=== PATIENT | male | born 1970 | race Caucasian/White ===

== ENCOUNTER 2022-10-07 13:20 | Inpatient (IN) ==
[2022-10-07 14:48] LABS: Basophils # (auto) 0.08 K/uL (0-0.2); Basophils % (auto) 0.7 %; Eosinophils # (auto) 0.63 K/uL (0-0.50); Eosinophils % (auto) 5.4 %; Hematocrit (blood only) 48.2 % (42.0-52.0); Hemoglobin 17.2 g/dl (14.0-18.0); Immature Granulocytes # (auto) 0.09 K/uL (0.01-0.20); Immature Granulocytes % (auto) 0.8 %; Lymphocytes # (auto) 1.97 K/uL (1.2-3.4); Mean Corpuscular Hemoglobin 30.3 pg (25.0-34.0); Mean Corpuscular Hgb Conc 35.7 g/dL (32.0-36.0); Mean Platelet Volume 8.4 fL (9.4-12.4); Monocytes # (auto) 0.99 K/uL (0.11-0.59); Monocytes % (auto) 8.6 %; Neutrophils # (auto) 7.81 K/uL (1.40-6.50); Neutrophils % (auto) 67.5 %; Platelet Count 204 K/uL (130-400); RDW Coefficient of Variation 13.1 % (11.5-14.5); Red Blood Count 5.67 M/uL (4.70-6.10); White Blood Count 11.57 K/ul (4.8-10.8)
[2022-10-07 15:12] LABS: Albumin Level 4.4 gm/dl (3.4-5.0); Anion Gap 6 (3-11); Bilirubin,Total 0.4 mg/dl (0.2-1.0); Calcium 9.6 mg/dl (8.6-10.3); Carbon Dioxide 27 mmol/L (21-32); Chloride 99 mmol/L (98-107); Potassium 4.4 mmol/L (3.5-5.1); Sodium 132 mmol/L (136-145)
[2022-10-07 15:30] LABS: INR 0.9 (0.9-1.1); Partial Thromboplastin Ratio 0.8; Partial Thromboplastin Time 23.4 Seconds (21.0-31.0); Prothrombin Time 9.8 Seconds (9.0-12.0)
[2022-10-07 15:45] LABS: Alanine Aminotransferase 23 U/L (7-52); Albumin Globulin Ratio 1.6 (0.9-2); Alkaline Phosphatase 122 U/L (34-104); Aspartate Aminotransferase 12 U/L (13-39); BUN Creatinine Ratio 18.5 (10-20); Blood Urea Nitrogen 17 mg/dl (6-23); Est GFR (Non-African American) 96.6 ml/min; Globulin 2.7 gm/dl (2.5-4.0); Glucose 418 mg/dl (70-99(Fasting)); Total Protein 7.1 gm/dl (6.0-8.3)
--- NOTE | 2022-10-07 17:02 | Emergency Department Note ---
Impression & Plan Back pain, Type 2 diabetes mellitus, Sciatica ED Provider Note Provider: Fritz Franco MD DATE OF SERVICE: 10/07/2022 CHIEF COMPLAINT: Back pain issues HISTORY OF PRESENT ILLNESS: Patient is a 52-year-old gentleman history of back pain and lumbar disc disease as well as diabetes presenting here today referred from the outpatient spine service. No recent falls. Over the past years been d ealing with back issues worsening last several months. Evidently has been dealing with some foot drop in the right foot and leg. States normally been controlling the pain with some edibles. Saw Dr. Mojica several weeks ago and had severe disease finding and pinched nerves of the L5 region by his report edibles. Denies significant heavy lifting but has had to cut back significantly on his work. States he is having a bit of constipation and cannot stand up straight to urinate. Given worsening pain and now having to use edibles multiple times a day came here as Dr. Mojica warned if there is worsening symptoms for him to come to the hospital. Numbness primarily in the feet but feels gross sensation of the legs. Denies significant genital numbness. States he just had some candy as well as an edible and his pain is improving some now. Does report he has significant sciatic pains at times. PAST MEDICAL HISTORY: As noted above MEDICATIONS: Primarily using Tylenol as well as edibles to help with pain. No current diabetes medicine SOCIAL HISTORY: PHYSICAL EXAM: GENERAL: alert and oriented in no acute distress on stretcher Head: normocephalic and atraumatic EYES: No injection, discharge or icterus. NECK: Trachea midline. Supple. ENT: Mucous membranes pink and moist. LUNGS: Airway patent. No retractions or tachypnea HEART: Regular rate and rhythm. SKIN: Acyanotic, warm, dry, without rashes EXTREMITIES: Without swelling, tenderness or deformity NEUROLOGICAL:No aphasia. No facial droop or slurred speech. Mildly decreased sensation of the feet. Gross sensation of the lower legs bilaterally. PDMP was checked without noted issue. GCS 15. Patient's laboratory studies and imaging reviewed. Differential includes Musculoskeletal, disc herniation, fracture, metastatic disease, cord compression, discitis, sciatica, cauda equina, infection, aortic disease, renal colic, gastrointestinal, as well as other pathologies. IMPRESSION/MEDICAL DECISION MAKING: Patient known to Dr. Mojica of the spine service. No new significant trauma. Afebrile here. Doubt infection. Recently seen by Dr. Mojica and due to worsening symptoms came here for evaluation. Has ongoing foot drop in the right foot. This seem to have any severe neurological symptoms and is ambulatory here but has significant pain particular with trying to stand straight. Doubt acute surgical emergency such as cauda equina but obvious ongoing back issues. Reached out to Dr. Mojica service to discuss if you want additional imaging or wished for the patient to be admitted for possible surgical care. Blood work indicative for significant hyperglycemia and he is not tolerated previous diabetic medicines not currently on medications but has been diagnosed with diabetes. We will give a little bit IV fluid. We will give some oral Tylenol. Was able to get Dr. Mojica on the phone I discussed with him the situation. Recommended we bring him in overnight and will evaluate tomorrow for possible surgical intervention. Discussed with hospitalist team here. Patient agreeable. DIAGNOSIS: Sciatica, low back pain, type 2 diabetes DISPOSITION: Hospitalist will evaluate Patient was agreeable with this plan. Past Med/Surg History Medical History (Updated 10/07/22 @ 20:12 by Kisha Crowley DO) History of alcohol abuse Social History Smoking Status: Current every day smoker Tobacco Type: Cigarettes Second Hand Exposure: No; Do You Dip or Chew Tobacco: No; Hx Alcohol Use: No Hx Substance Use: Yes Last Used Substance: Hours (ago) Preferred Language: Citizen Of The [place] Communication Ability: Effective Community Theater Actor Required: No Beliefs That Will Affect Care: None Current Living Situation: Spouse Feels Safe at Home: Yes Assistive Devices: Cane and CPAP Allergies Allergies Allergy/AdvReac Type Severity Reaction Status Date / Time ibuprofen AdvReac Intermediate Rash Unverified 10/07/22 18:49 Home Meds Home Medications Medication Instructions Recorded Confirmed Medical Marijuana See Rx Instructions .Route .COMPLEX 10/07/22 10/07/22 albuterol sulfate 90 mcg/actuation 2 puff inhalation Q6H PRN wheezing 10/07/22 10/07/22 aerosol inhaler methylprednisolone 4 mg tablets in See Rx Instructions .Route .COMPLEX 10/07/22 10/07/22 a dose pack Results & Data (ED) Vital Signs Vital Signs - 24 hr 10/07/22 13:42 Temperature 36.8 C Temperature Source Temporal Artery Scan Pulse Rate 94 H Pulse Rhythm Regular Respiratory Rate 20 Respiratory Effort / Characteristics Non-Labored Spontaneous Respiratory Depth Normal Blood Pressure 138/88 Blood Pressure Mean 104 Pulse Oximetry 97 Oxygen Delivery Method Room Air Sepsis Recent Fever Within 48 Hours No Sepsis New/Unexplained Change in Mental Status No Sepsis Action Taken by Nursing No Action Required Laboratory Data 10/07/22 14:25 10/07/22 14:25 Lab Results 10/07/22 10/07/22 10/07/22 Range/Units 14:25 14:25 14:25 WBC 11.57 H (4.8-10.8) K/ul RBC 5.67 (4.70-6.10) M/uL Hgb 17.2 (14.0-18.0) g/dl Hct 48.2 (42.0-52.0) % MCV 85.0 (80.0-100.0) fL MCH 30.3 (25.0-34.0) pg MCHC 35.7 (32.0-36.0) g/dL RDW Std Deviation 40.0 (36.4-46.3) fL RDW Coeff of Alexandra 13.1 (11.5-14.5) % Plt Count 204 (130-400) K/uL MPV 8.4 L (9.4-12.4) fL Immature Gran % (Auto) 0.8 % Neut % (Auto) 67.5 % Lymph % (Auto) 17.0 % Butts % (Auto) 8.6 % Eos % (Auto) 5.4 % Baso % (Auto) 0.7 % Neut # (Auto) 7.81 H (1.40-6.50) K/uL Lymph # (Auto) 1.97 (1.2-3.4) K/uL Butts # (Auto) 0.99 H (0.11-0.59) K/uL Eos # (Auto) 0.63 H (0-0.50) K/uL Baso # (Auto) 0.08 (0-0.2) K/uL Immature Gran # (Auto) 0.09 (0.01-0.20) K/uL PT 9.8 (9.0-12.0) Seconds INR 0.9 (0.9-1.1) APTT 23.4 (21.0-31.0) Seconds PTT Ratio 0.8 Sodium 132 L (136-145) mmol/L Potassium 4.4 (3.5-5.1) mmol/L Chloride 99 (98-107) mmol/L Carbon Dioxide 27 (21-32) mmol/L Anion Gap 6 (3-11) BUN 17 (6-23) mg/dl Creatinine 0.92 (0.6-1.4) mg/dl Est Cr Clr Drug Dosing Not Reportable Est GFR ( Amer) 112.0 ml/min Est GFR (Non-Af Amer) 96.6 ml/min BUN/Creatinine Ratio 18.5 (10-20) Glucose 418 H* (70-99(Fasting)) mg/dl Estimat Average Glucose mg/dl Hemoglobin A1c (4.5-5.6) % Calcium 9.6 (8.6-10.3) mg/dl Total Bilirubin 0.4 (0.2-1.0) mg/dl AST 12 L (13-39) U/L ALT 23 (7-52) U/L Alkaline Phosphatase 122 H (34-104) U/L Total Protein 7.1 (6.0-8.3) gm/dl Albumin 4.4 (3.4-5.0) gm/dl Globulin 2.7 (2.5-4.0) gm/dl Albumin/Globulin Ratio 1.6 (0.9-2) 10/07/22 Range/Units 14:25 WBC (4.8-10.8) K/ul RBC (4.70-6.10) M/uL Hgb (14.0-18.0) g/dl Hct (42.0-52.0) % MCV (80.0-100.0) fL MCH (25.0-34.0) pg MCHC (32.0-36.0) g/dL RDW Std Deviation (36.4-46.3) fL RDW Coeff of Alexandra (11.5-14.5) % Plt Count (130-400) K/uL MPV (9.4-12.4) fL Immature Gran % (Auto) % Neut % (Auto) % Lymph % (Auto) % Butts % (Auto) % Eos % (Auto) % Baso % (Auto) % Neut # (Auto) (1.40-6.50) K/uL Lymph # (Auto) (1.2-3.4) K/uL Butts # (Auto) (0.11-0.59) K/uL Eos # (Auto) (0-0.50) K/uL Baso # (Auto) (0-0.2) K/uL Immature Gran # (Auto) (0.01-0.20) K/uL PT (9.0-12.0) Seconds INR (0.9-1.1) APTT (21.0-31.0) Seconds PTT Ratio Sodium (136-145) mmol/L Potassium (3.5-5.1) mmol/L Chloride (98-107) mmol/L Carbon Dioxide (21-32) mmol/L Anion Gap (3-11) BUN (6-23) mg/dl Creatinine (0.6-1.4) mg/dl Est Cr Clr Drug Dosing Est GFR ( Amer) ml/min Est GFR (Non-Af Amer) ml/min BUN/Creatinine Ratio (10-20) Glucose (70-99(Fasting)) mg/dl Estimat Average Glucose 263 mg/dl Hemoglobin A1c 10.8 H (4.5-5.6) % Calcium (8.6-10.3) mg/dl Total Bilirubin (0.2-1.0) mg/dl AST (13-39) U/L ALT (7-52) U/L Alkaline Phosphatase (34-104) U/L Total Protein (6.0-8.3) gm/dl Albumin (3.4-5.0) gm/dl Globulin (2.5-4.0) gm/dl Albumin/Globulin Ratio (0.9-2) Administered Medications Insulin Aspart (Insulin Aspart Per Unit Charge) 0 units SC ACHS RODRIGUEZ Stop: 11/06/22 20:59 Last Admin: 10/07/22 21:56 Dose: 3 units Documented By: EKF Co-signed By: LEIGH Insulin Glargine (Lantus Per Unit Charge) 10 units SQ BID RODRIGUEZ Stop: 11/06/22 21:29 Last Admin: 10/07/22 21:55 Dose: 10 units Documented By: EKF Co-signed By: LEIGH Discontinued Medications Acetaminophen (Acetaminophen 500 Mg Tab) 1,000 mg PO NOW STA Stop: 10/07/22 17:47 Last Admin: 10/07/22 18:46 Dose: 1,000 mg Documented By: FANTA Gabapentin (Gabapentin 100 Mg Cap) 100 mg PO TID ONE Stop: 10/07/22 21:01 Last Admin: 10/07/22 21:54 Dose: 100 mg Documented By: EKF Sodium Chloride (Nss 1000ml) 1,000 mls @ 999 mls/hr IV .Q1H1M ONE Stop: 10/07/22 18:46 Last Infusion: 10/07/22 20:11 Dose: 0 mls/hr Documented By: Admin: 10/07/22 18:46 Dose: 999 mls/hr Documented By: FANTA Insulin Human Regular (Novolin-R Insulin Per Unit Charge) 5 units IV NOW STA Stop: 10/07/22 18:04 Last Admin: 10/07/22 19:32 Dose: 5 units Documented By: TAPAN Co-signed By: YULISSA Miscellaneous (Patient's Height &/Or Weight Needed) 1 each N/A NOW STA Stop: 10/07/22 18:07 Last Admin: 10/07/22 19:15 Dose: 1 each Documented By: TAPAN Discharge Plan Visit Data Chief Complaint: Back Injury/Pain Stated Complaint: BACK PAIN ED Provider: Fritz Franco Discharge Problem: Back pain, Type 2 diabetes mellitus, Sciatica Patient Disposition: Admitted As Inpatient Discharge Instructions Interventions: ED Discharge Assessment Last Done: 10/07/22 20:15
[2022-10-07] MEDS ORDERED: SODIUM CHLORIDE 0.9% 1000ML 1,000 ML IV ONE (17:46)
[2022-10-07] MEDS ORDERED: ACETAMINOPHEN 500 MG TAB PO STA (17:46)
[2022-10-07] MEDS ORDERED: NovoLIN-R INSULIN PER UNIT CHARGE IV STA (18:03)
[2022-10-07] MEDS ORDERED: Patient's HEIGHT &/or WEIGHT Needed STA (18:06)
--- NOTE | 2022-10-07 18:09 | History & Physical Report ---
Date of Service October 07, 2022 Assessment & Plan (1) Lumbar disc herniation with radiculopathy: Plan: Consult ortho spine (2) Type 2 diabetes mellitus: (3) Back pain: History of Present Illness Primary Care Provider: NO PCP Past Med/Surg History Social History Smoking Status: Current every day smoker Feels Safe at Home: Yes Results & Data Results & Data Vital Signs (Past 12 Hours) Vital Signs Temp Pulse Resp BP Pulse Ox O2 Del Method 10/07/22 13:42 36.8 C 94 H 20 138/88 97 Room Air Laboratory Results Abnormal lab results 10/07/22 10/07/22 Range/Units 14:25 14:25 WBC 11.57 H (4.8-10.8) K/ul MPV 8.4 L (9.4-12.4) fL Neut # (Auto) 7.81 H (1.40-6.50) K/uL Mccreary # (Auto) 0.99 H (0.11-0.59) K/uL Eos # (Auto) 0.63 H (0-0.50) K/uL Sodium 132 L (136-145) mmol/L Glucose 418 H* (70-99(Fasting)) mg/dl AST 12 L (13-39) U/L Alkaline Phosphatase 122 H (34-104) U/L Medications Administered ER Medications Given: NSS 1L bolus Acetaminophen 1000mg PO Code Status & VTE Plan VTE Prophylaxis Plan VTE Prophylaxis will be ordered: Yes PG Care Time/CCT Total # of Minutes Spent Total Time Spent with Patient: Total time spent is greater than 50% in coordination of care (as documented) at patient's floor/unit and/or counseling patient: Coding Diagnoses Lumbar disc herniation with radiculopathy M51.16 Type 2 diabetes mellitus E11.9 Back pain M54.9
[2022-10-07] MEDS ORDERED: Patient's ALLERGY Info needs ENTERED SCH (18:45)
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
[2022-10-07 20:25] LABS: Estimated Average Glucose 263 mg/dl; Hemoglobin A1C 10.8 % (4.5-5.6)
--- NOTE | 2022-10-07 20:25 | Billing Data ---
Date of Service October 07, 2022 Coding Level of Care Code 02776 INT INP/OBS CARE
[2022-10-07] MEDS ORDERED: oxyCODONE HCL IR 5 MG TAB (IMMEDIATE RELEASE) PO PRN (20:34)
[2022-10-07] MEDS ORDERED: DEXTROSE 50% 50 ML SYRINGE IV PRN (20:47)
[2022-10-07] MEDS ORDERED: CARBOHYDRATES FOR HYPOGLYCEMIA PO PRN (20:47)
[2022-10-07] MEDS ORDERED: GLUCOSE 10 TAB/TUBE PO PRN (20:47)
[2022-10-07] MEDS ORDERED: GLUCAGON FOR INJ 1 MG VIAL SQ PRN (20:47)
[2022-10-07] MEDS ORDERED: GLUCOSE 40% GEL 15 GM TUBE PO PRN (20:47)
[2022-10-07] MEDS ORDERED: GABAPENTIN 100 MG CAP PO ONE (21:00)
[2022-10-07] MEDS: LANTUS PER UNIT CHARGE SQ SCH (21:55)
[2022-10-07] MEDS: INSULIN ASPART PER UNIT CHARGE SC SCH (21:56)
[2022-10-08] MEDS: traMADol HCL 50 MG TABLET PO PRN ×3 (05:56→20:43)
[2022-10-08] MEDS: GABAPENTIN 100 MG CAP PO SCH ×3 (07:48→20:39)
[2022-10-08] MEDS: INSULIN ASPART PER UNIT CHARGE SC SCH ×4 (07:50→20:56)
[2022-10-08] MEDS: LANTUS PER UNIT CHARGE SQ SCH (07:51)
[2022-10-08] MEDS: ACETAMINOPHEN 500 MG TAB PO SCH ×3 (08:00→20:43)
[2022-10-08] MEDS ORDERED: methylPREDNISolone 40 MG in SYRINGE 0 ML IV SCH (08:30)
--- NOTE | 2022-10-08 09:35 | XRay Report ---
SINGLE VIEW CHEST CLINICAL HISTORY: Preoperative examination FINDINGS: An AP, portable, upright chest radiograph is obtained. No prior studies are available for c omparison at the time of dictation. The cardiomediastinal silhouette is unremarkable. The lungs and p leural spaces are clear. No pneumothorax is seen. The bony thorax is grossly intact. IMPRESSION: No active disease in the chest. ACT 112: Negative or not required by law. Electronically signed by: Shaquille Mallory M.D. 10/08/2022 9:33 AM
[2022-10-08] MEDS: INSULIN HUMAN NPH SC SCH ×2 (10:26→20:56)
[2022-10-08] MEDS ORDERED: LORazepam 2 MG/1 ML VIAL IV STA (11:37)
--- NOTE | 2022-10-08 11:46 | Orthopedic Consultation ---
Date of Consultation October 08, 2022 Assessment & Plan (1) Lumbar disc herniation with radiculopathy: Plan At this time the patient has had decline in his status since his last MRI and exam. Would like to obtain MRI lumbar spine to assess the discrimination and magnitude of stenosis. I will review the updated MRI and make further recommendations. History of Present Illness Reason for Consultation: Back and bilateral leg pain Attending Physician: Prashant Wong MD History of Present Illness This is a 52-year-old male who presents yesterday with marked decline in status. I had met him approximately 2 weeks ago in the office. At that point he has evidence of a severe spinal stenosis and discrimination at L4-5 with left greater than right radiculopathy. Unfortunately he is continued to decline since his appointments. He now has worsening right lower extremity pain in addition to the previous left lower extremity pain with weakness. The symptoms limit his ability to stand and ambulate. Oral pain medications not effective. Allergies Allergy/AdvReac Type Severity Reaction Status Date / Time ibuprofen AdvReac Intermediate Rash Unverified 10/07/22 18:49 Home Medications Medication Instructions Recorded Confirmed Type Medical Marijuana See Rx Instructions .Route .COMPLEX 10/07/22 10/07/22 History albuterol sulfate 90 mcg/actuation 2 puff inhalation Q6H PRN wheezing 10/07/22 10/07/22 History aerosol inhaler methylprednisolone 4 mg tablets in See Rx Instructions .Route .COMPLEX 10/07/22 10/07/22 History a dose pack Patient History Medical History (Updated 10/07/22 @ 20:12 by Kisha Crowley DO) History of alcohol abuse Social History Smoking Status: Current every day smoker Tobacco Type: Cigarettes Second Hand Exposure: No; Do You Dip or Chew Tobacco: No; Hx Alcohol Use: No Hx Substance Use: Yes Last Used Substance: Hours (ago) Preferred Language: Thai Communication Ability: Effective Material Dispatcher Required: No Beliefs That Will Affect Care: None Current Living Situation: Spouse Feels Safe at Home: Yes Assistive Devices: Cane, CPAP and Walker Physical Exam Physical Exam: On exam he is now sitting up in bed. He has significant tension signs with straight leg raising bilateral lower extremities as well as bilateral Lasegue's maneuver. He has 4/5 bilateral extensor houses longus and dorsi flexion. Quadriceps are symmetric and intact. Sensory is markedly diminished on the right compared to left to cold and light touch. Results & Data Vital Signs (Past 12 Hours) Vital Signs Temp Pulse Resp BP Pulse Ox O2 Del Method FiO2 10/08/22 07:29 36.7 C 76 18 144/70 H 95 Room Air 10/08/22 02:37 13 96 21
--- NOTE | 2022-10-08 14:19 | Magnetic Resonance Report ---
MR lumbar spine wo con CLINICAL HISTORY: worsen leg pain TECHNIQUE: Multiplanar sequences through the lumbar spine were obtained, without intravenous contrast . Comparison: None available at the time of this dictation. FINDINGS: Exam is limited by patient motion. The alignment is anatomical. L1-L2: No significant abnormality. L2-L3: No significant abnormality. L3-L4: Broad-based posterior disc bulge is seen without significant canal or neuroforaminal stenosis. L4-L5: Broad-based disc protrusion/extrusion is seen with severe canal stenosis, with near obliterati on of the canal. There is mild bilateral neuroforaminal stenosis. L5-S1: No significant disc bulge, evaluation is limited due to motion artifact however the exiting ne rve roots are likely compressed by the L4-L5 disc protrusion. The spinal ligaments are intact, without evidence of disruption or abnormal signal intensity. The spi nal cord is normal in signal intensity and there is no evidence of cord contusion. There is no eviden ce of an extradural, intradural, extramedullary or intramedullary lesion. Visualized soft tissues are normal. IMPRESSION: Broad-based disc protrusion/extrusion at L4-L5 with severe canal stenosis and compression of lower ne rve roots. ACT 112: Negative or not required by law. Electronically signed by: Colby Gonzalez M.D. 10/08/2022 2:17 PM
--- NOTE | 2022-10-08 16:02 | Hospitalist Progress Note ---
Date of Service October 08, 2022 Assessment & Plan (1) Lumbar disc herniation with radiculopathy: Plan: L4-L5 interspace. Orthopedic spine surgery consultation appreciated. Surgical intervention will occur this . Supportive care. Pain control measures (2) Back pain: Plan: Due to herniated disc at the L4-L5 level. Pain control measures (3) Type 2 diabetes mellitus: Plan: He is now on NPH insulin. ADA diet. Sliding scale coverage as needed. ems educator has been requested (4) Asthma: Plan: Stable. Nebulizers as needed Plan Eventual discharge to home Admission and Anticipated Discharge Date Admission Date: October 07, 2022 Subjective Alert and oriented. Case discussed with Dr. Mojica. Lumbar MRI scan reveals an L4-5 herniated disc. This will require surgery, probably . Parenteral steroids were started earlier today but discontinued once the surgery decision was made. He is now on NPH insulin and diabetic education has been requested Review of Systems Review of Systems: Constitutional-no fever or chills ENT-no blurred vision, no double vision, no epistaxis, no sore throat Respiratory-no cough, no wheezing, no shortness of breath Cardiac-no palpitations, no chest pain, no syncope GI-no nausea, vomiting, diarrhea, melena, hematochezia -no urinary retention, no urinary incontinence, no dysuria, no hematuria Musculoskeletal-lumbar pain with movement Skin-no bruising, no rashes, no pruritus Neuro-no isolated weakness, no paresthesia, no weakness Psych-no depression, no anxiety Physical Exam 2 Physical Exam: General-alert and oriented x3, no fevers, no chills HEENT-head atraumatic and normocephalic, pupils equal and reactive to light, extraocular muscles intact Neck-no lymphadenopathy or thyromegaly, trachea midline Chest-clear to auscultation percussion. No rales wheezing or rhonchi Cardiac-regular rate and rhythm, normal S1 and S2, no murmurs Abdomen-normal bowel sounds, nontender, no hepatosplenomegaly Extremities-lumbar pain with movement Neuro-cranial nerves II through XII intact, motor and sensory function within normal limits, strength symmetrical , no focal deficits Psych-normal affect, normal mood Results & Data Results & Data Vital Signs (Past 12 Hours) Vital Signs Temp Pulse Pulse Resp BP Pulse Ox O2 Del Method 10/08/22 15:03 37.3 C 75 16 155/70 H 95 Room Air 10/08/22 07:29 36.7 C 76 18 144/70 H 95 Room Air Laboratory Results 10/07/22 14:25 10/07/22 14:25 PG Care Time/CCT Total # of Minutes Spent Total Time Spent with Patient: Total time spent is greater than 50% in coordination of care (as documented) at patient's floor/unit and/or counseling patient: Coding Level of Care Code 16801 SUB INP/OBS CARE 3/50MIN Diagnoses Lumbar disc herniation with radiculopathy M51.16 Back pain M54.9 Type 2 diabetes mellitus E11.9 Asthma J45.909
--- NOTE | 2022-10-08 17:23 | Electrocardiogram Report ---
Test Reason : Blood Pressure : / mmHG Vent. Rate : 073 BPM Atrial Rate : 073 BPM P-R Int : 170 ms QRS Dur : 108 ms QT Int : 398 ms P-R-T Axes : 040 093 066 degrees QTc Int : 438 ms Normal sinus rhythm Rightward axis Possible Anterior infarct , age undetermined Abnormal ECG No previous ECGs available Confirmed by Marty Scott ([id number]) on 10/08/2022 5:23:39 PM Referred By: REFERRED SELF Confirmed By:Marty Scott
[2022-10-08] MEDS: LORazepam 2 MG/1 ML VIAL IV PRN (20:50)
[2022-10-09] MEDS ORDERED: KETOROLAC 30 MG/ML VIAL IV ONE (00:41)
[2022-10-09] MEDS: traMADol HCL 50 MG TABLET PO PRN ×2 (04:28→21:11)
--- NOTE | 2022-10-09 05:41 | Communication Note ---
Date of Service: October 09, 2022 Gave IV Toradol 30 mg x 1 dose for sciatic pain refractory to Tylenol. Patient reported improvement in pain, per nurse. Resident Activity Tracking Resident Involvement: Resident Care Provided and Television Writer Coverage Note Care Provided: Adult [facility]
[2022-10-09] MEDS: GABAPENTIN 100 MG CAP PO SCH ×3 (08:15→21:11)
[2022-10-09] MEDS: INSULIN ASPART PER UNIT CHARGE SC SCH ×4 (08:17→21:12)
[2022-10-09] MEDS: INSULIN HUMAN NPH SC SCH ×2 (08:17→21:12)
[2022-10-09] MEDS: ACETAMINOPHEN 500 MG TAB PO SCH ×3 (08:20→21:10)
[2022-10-09] MEDS ORDERED: ceFAZolin 2000MG 2,000 MG/15 ML SYR IV ONE (08:26)
--- NOTE | 2022-10-09 08:26 | Orthopedic Progress Note ---
Date of Service October 09, 2022 Assessment & Plan (1) Lumbar disc herniation with radiculopathy: Plan: Richi presents with a massive disc herniation of L4-5 with progressive worsening of lower extremity pain and motor deficit. We have discussed pursuing surgical intervention in the form of a posterior lumbar decompression and instrumented fusion L4-5 tomorrow. We will make him n.p.o. All questions have been answered in detail. Admission and Anticipated Discharge Date Admission Date: October 07, 2022 Subjective No change in complaints. He was to like to proceed with surgical intervention tomorrow. All questions have been answered in detail. Review of Systems Review of Systems: All systems reviewed & are unremarkable except as noted in HPI & below Physical Exam Physical Exam: sitting on edge of bed no change in strength of b/l LE Results & Data Vital Signs (Past 12 Hours) Vital Signs Temp Pulse Resp BP Pulse Ox O2 Del Method 10/09/22 07:15 36.7 C 67 16 142/84 H 97 Room Air 10/08/22 20:47 Room Air
[2022-10-09] MEDS ORDERED: Nursing to Pharmacy Communication SCH (10:30)
--- NOTE | 2022-10-09 12:44 | Hospitalist Progress Note ---
Date of Service October 09, 2022 Assessment & Plan (1) Lumbar disc herniation with radiculopathy: Plan: L4-L5 interspace. Orthopedic spine surgery consultation appreciated. Surgical intervention will occur tomorrow, October 10. Supportive care. Pain control measures (2) Back pain: Plan: Due to herniated disc at the L4-L5 level. Pain control measures (3) Type 2 diabetes mellitus: Plan: He is now on NPH insulin. ADA diet. Sliding scale coverage as needed. Glucose 145 this morning. (4) Asthma: Plan: Stable. Nebulizers as needed Plan Surgical intervention for herniated lumbar disc tomorrowOctober 10 Admission and Anticipated Discharge Date Admission Date: October 09, 2022 Subjective Alert and oriented. No acute distress. L4-5 herniated disc seen on MRI scan that will need surgical intervention tomorrowOctober [address] Mojica. Parenteral steroid therapy has been discontinued. Glucose down to 145 this morning on current NPH regimen. Review of Systems Review of Systems: Constitutional-no fever or chills ENT-no blurred vision, no double vision, no epistaxis, no sore throat Respiratory-no cough, no wheezing, no shortness of breath Cardiac-no palpitations, no chest pain, no syncope GI-no nausea, vomiting, diarrhea, melena, hematochezia -no urinary retention, no urinary incontinence, no dysuria, no hematuria Musculoskeletal-lumbar pain with movement Skin-no bruising, no rashes, no pruritus Neuro-no isolated weakness, no paresthesia, no weakness Psych-no depression, no anxiety Physical Exam Physical Exam: General-alert and oriented x3, no fevers, no chills HEENT-head atraumatic and normocephalic, pupils equal and reactive to light, extraocular muscles intact Neck-no lymphadenopathy or thyromegaly, trachea midline Chest-clear to auscultation percussion. No rales wheezing or rhonchi Cardiac-regular rate and rhythm, normal S1 and S2, no murmurs Abdomen-normal bowel sounds, nontender, no hepatosplenomegaly Extremities-lumbar pain with movement Neuro-cranial nerves II through XII intact, motor and sensory function within normal limits, strength symmetrical , no focal deficits Psych-normal affect, normal mood Results & Data Results & Data Vital Signs (Past 12 Hours) Vital Signs Temp Pulse Resp BP Pulse Ox O2 Del Method 10/09/22 07:15 36.7 C 67 16 142/84 H 97 Room Air Laboratory Results 10/07/22 14:25 10/07/22 14:25 PG Care Time/CCT Total # of Minutes Spent Total Time Spent with Patient: Total time spent is greater than 50% in coordination of care (as documented) at patient's floor/unit and/or counseling patient: Coding Level of Care Code 98440 SUB INP/OBS CARE 2/35MIN Diagnoses Lumbar disc herniation with radiculopathy M51.16 Back pain M54.9 Type 2 diabetes mellitus E11.9 Asthma J45.909
[2022-10-09] MEDS: NICOTINE 14 MG/24 HR PATCH TD SCH (16:41)
[2022-10-10] MEDS ORDERED: Nursing to Pharmacy Communication SCH (03:00)
[2022-10-10] MEDS ORDERED: ceFAZolin 2000MG 2,000 MG/15 ML SYR IV SCH (06:00)
[2022-10-10] MEDS ORDERED: ceFAZolin 2000MG 2,000 MG/15 ML SYR IV ONE (06:00)
[2022-10-10] MEDS: INSULIN ASPART PER UNIT CHARGE SC SCH ×4 (06:02→21:16)
[2022-10-10] MEDS ORDERED: INSULIN HUMAN NPH SC ONE (07:20)
[2022-10-10 07:39] LABS: Basophils # (auto) 0.08 K/uL (0.00-0.20); Basophils % (auto) 0.8 %; Eosinophils # (auto) 0.68 K/uL (0.00-0.50); Eosinophils % (auto) 7.2 %; Hematocrit (blood only) 46.9 % (42.0-52.0); Immature Granulocytes # (auto) 0.08 K/uL (0.01-0.20); Immature Granulocytes % (auto) 0.8 %; Lymphocytes # (auto) 2.24 K/uL (1.20-3.40); Lymphocytes % (auto) 23.6 %; Mean Corpuscular Hemoglobin 29.6 pg (25.0-34.0); Mean Corpuscular Hgb Conc 34.1 g/dL (32.0-36.0); Mean Corpuscular Volume 86.9 fL (80.0-100.0); Monocytes # (auto) 0.92 K/uL (0.11-0.59); Monocytes % (auto) 9.7 %; Neutrophils % (auto) 57.9 %; Platelet Count 173 K/uL (130-400); RDW Coefficient of Variation 13.2 % (11.5-14.5)
[2022-10-10 08:03] LABS: BUN Creatinine Ratio 13.4 (10-20); Calcium 8.9 mg/dl (8.6-10.3); Creatinine Clr Calc Pharmacy 120.8 ml/min; Est GFR (African American) 105.1 ml/min; Est GFR (Non-African American) 90.7 ml/min
[2022-10-10] MEDS: GABAPENTIN 100 MG CAP PO SCH ×3 (09:35→21:17)
[2022-10-10] MEDS: NICOTINE 14 MG/24 HR PATCH TD SCH (09:35)
[2022-10-10] MEDS: ACETAMINOPHEN 500 MG TAB PO SCH ×3 (09:42→21:18)
[2022-10-10] MEDS: SODIUM CHLORIDE 0.9% 1000ML 1,000 ML IV SCH ×2 (09:50→23:14)
[2022-10-10] MEDS ORDERED: ROCURONIUM BROMIDE 10 MG/ML 5 ML VIAL IV ONE ×3 (13:18→15:49)
[2022-10-10] MEDS ORDERED: PROPOFOL IV EMULSION 10 MG/ML 20 ML VIAL IV ONE (13:18)
[2022-10-10] MEDS ORDERED: LIDOCAINE 2% 2 ML VIAL/AMP(20MG/ML) INFIL ONE (13:18)
[2022-10-10] MEDS ORDERED: fentaNYL citrate PF 100 MCG/2 ML VIAL ONE ×2 (13:19→16:55)
[2022-10-10] MEDS ORDERED: MIDAZOLAM HCL 1 MG/ML 2ML VIAL ONE (13:19)
[2022-10-10] MEDS ORDERED: ONDANSETRON INJ 2 MG/ML 2 ML VIAL IV PRN (14:21)
[2022-10-10] MEDS ORDERED: ATROPINE SULFATE 0.1 MG/ML 10ML SYR IV PRN (14:21)
[2022-10-10] MEDS ORDERED: HYDROmorphone INJ 2 MG/ML SYR/VIAL IV PRN (14:21)
[2022-10-10] MEDS ORDERED: ePHEDrine sulfate 50 MG/ML AMP IV PRN (14:21)
--- NOTE | 2022-10-10 14:21 | Anesthesiology Consultation ---
Date of Service October 10, 2022 Assessment & Plan ASA ASA3 Proposed Anesthesia Anesthesia Type: General Risk / Benefits Reviewed With: PT / POA / Parent / Guardian, Accepts Plan and Informed Consent Obtained History Surgery Operation Date: 10/10/22 14:45 Proposed Procedures p Decompression Fusion L4-L5 Spinal Cord Monitoring - Victorino Mojica DO Height/Weight Height: 6 ft 2 in Weight: 111 kg Allergies Allergy/AdvReac Type Severity Reaction Status Date / Time ibuprofen AdvReac Intermediate Rash Unverified 10/07/22 18:49 mushroom AdvReac Diarrhea Verified 10/10/22 09:56 Medications Home Medications Medication Instructions Recorded Confirmed Last Taken Medical Marijuana See Rx Instructions .Route .COMPLEX 10/07/22 10/07/22 10/07/22 albuterol sulfate 90 mcg/actuation 2 puff inhalation Q6H PRN wheezing 10/07/22 10/07/22 Unknown aerosol inhaler methylprednisolone 4 mg tablets in See Rx Instructions .Route .COMPLEX 10/07/22 10/07/22 10/07/22 a dose pack Active Medications Generic Name Dose Route Start Last Admin Trade Name Freq PRN Reason Stop Dose Admin Acetaminophen 1,000 mg 10/08/22 09:00 10/10/22 12:59 Acetaminophen 500 Mg Tab PO 11/07/22 08:59 1,000 mg TID RODRIGUEZ Administration Gabapentin 100 mg 10/08/22 09:00 10/10/22 12:59 Gabapentin 100 Mg Cap PO 11/07/22 08:59 100 mg TID RODRIGUEZ Administration Sodium Chloride 1,000 mls @ 100 mls/hr 10/10/22 07:30 10/10/22 09:50 Nss 1000ml IV 11/09/22 07:29 100 mls/hr .Q10H RODRIGUEZ Administration Insulin Aspart 0 units 10/10/22 06:00 10/10/22 12:55 Insulin Aspart Per Unit Charge SC 11/09/22 05:59 Not Given Q6 RODRIGUEZ Lorazepam 0.5 mg 10/08/22 11:37 10/08/22 20:50 Lorazepam 2 Mg/1 Ml Vial IV 11/07/22 11:36 0.5 mg Q8H PRN Administration Anxiety/Agitation Miscellaneous 1 each 10/10/22 08:59 10/10/22 09:42 Remove Nicoderm Patch N/A 11/09/22 08:58 1 each [id number] RODRIGUEZ Administration Nicotine 14 mg 10/09/22 15:45 10/10/22 09:35 Nicotine 14 Mg/24 Hr Patch TD 11/08/22 15:44 14 mg QAM RODRIGUEZ Administration Tramadol HCl 50 mg 10/07/22 21:17 10/09/22 21:11 Tramadol Hcl 50 Mg Tablet PO 11/06/22 21:16 50 mg Q4H PRN Administration Pain NPO Date Last Intake of Fluids: 10/09/22 Time Last Intake of Fluids: 22:00 Date Last Intake of Solids: 10/09/22 Time Last Intake of Solids: 22:00 Past Medical History Medical History History of alcohol abuse Exercise / Class Metabolic Activity II 4-5 Yardwork/Stairs/Walk up hill Past Anesthesia History No Hx of Anesthesia Complications and No Family Hx of Anesthesia Complications History of PONV No Hx of PONV and No Hx of Motion Sickness Social History Smoking Status: Current every day smoker Do You Dip or Chew Tobacco: No Hx Alcohol Use: No Hx Substance Use: Yes substance use type: marijuana Last Used Substance: Hours (ago) Review of Systems denies fever/cough/ colds/ chest pain/ SOB/ JAEL denies JAEL Physical Exam Vital Signs Last Vital Signs Temp 36.9 C 10/10/22 13:44 Pulse 77 10/10/22 13:44 Resp 20 10/10/22 13:44 BP 134/70 10/10/22 13:44 Pulse Ox 94 10/10/22 13:44 O2 Del Method Room Air 10/10/22 13:44 FiO2 10/08/22 02:37 ENMT Mouth: + edentulous; no TMJ abnormality and no dentition abnormality Thyromental Distance: > or= 3.5 Finger Breadths Mallampati Class: III Neck neck extension not limited Respiratory normal respiratory effort; no respiratory distress Auscultation: lungs clear to auscultation bilaterally Cardiovascular Rate/Rhythm: regular rate and regular rhythm Neurologic moves all extremities Psychiatric Orientation: alert and oriented x 3 Testing Laboratory Results 10/10/22 06:53 10/10/22 06:53 PT 9.8 Seconds (9.0-12.0) 10/07/22 14:25 INR 0.9 (0.9-1.1) 10/07/22 14:25 APTT 23.4 Seconds (21.0-31.0) 10/07/22 14:25 Hemoglobin A1c 10.8 % (4.5-5.6) H 10/07/22 14:25 Blood Type O Positive 10/10/22 06:53 Antibody Screen NEGATIVE 10/10/22 06:53 10/10/22 10/10/22 12:54 05:49 POC Glucose 175 H 125 H
--- NOTE | 2022-10-10 14:32 | History & Physical Bridge Note ---
Date of Service October 10, 2022 History & Physical Bridge Note I have examined the patient, reviewed the History & Physical and in the interval since the performance of the History & Physical I have noted the following changes of clinical significance: no changes noted Lumbar decompression and fusion L4-L5
[2022-10-10] MEDS ORDERED: BUPIVACAINE/EPINEPHRINE 0.25% 1:200,000 30 ML VIAL ONE (14:57)
[2022-10-10] MEDS ORDERED: ceFAZolin 330 MG/ML 1 GM VIAL ONE (14:57)
--- NOTE | 2022-10-10 15:10 | Hospitalist Progress Note ---
Date of Service October 10, 2022 Assessment & Plan (1) Lumbar disc herniation with radiculopathy: Plan: L4-L5 interspace. Orthopedic spine surgery consultation appreciated. Surgical intervention will occur later today on October 10. Supportive care. Pain control measures (2) Back pain: Plan: Due to herniated disc at the L4-L5 level. Pain control measures (3) Type 2 diabetes mellitus: Plan: He is now on NPH insulin. ADA diet. Sliding scale coverage as needed. Glucose 124 this morning. (4) Asthma: Plan: Stable. Nebulizers as needed Plan Surgical intervention for herniated lumbar disc later today, October 10 Admission and Anticipated Discharge Date Admission Date: October 09, 2022 Subjective The patient was seen earlier today and was alert and oriented without complaint. is at the bedside. He will undergo lumbar surgery with fusion later today, October 10. Glucose controlled at 124. He is n.p.o. for surgery and half dose of NPH was given this morning. IV fluids have been started Review of Systems Review of Systems: Constitutional-no fever or chills ENT-no blurred vision, no double vision, no epistaxis, no sore throat Respiratory-no cough, no wheezing, no shortness of breath Cardiac-no palpitations, no chest pain, no syncope GI-no nausea, vomiting, diarrhea, melena, hematochezia -no urinary retention, no urinary incontinence, no dysuria, no hematuria Musculoskeletal-lumbar pain with movement Skin-no bruising, no rashes, no pruritus Neuro-no isolated weakness, no paresthesia, no weakness Psych-no depression, no anxiety Physical Exam Physical Exam: General-alert and oriented x3, no fevers, no chills HEENT-head atraumatic and normocephalic, pupils equal and reactive to light, extraocular muscles intact Neck-no lymphadenopathy or thyromegaly, trachea midline Chest-clear to auscultation percussion. No rales wheezing or rhonchi Cardiac-regular rate and rhythm, normal S1 and S2, no murmurs Abdomen-normal bowel sounds, nontender, no hepatosplenomegaly Extremities-lumbar pain with movement Neuro-cranial nerves II through XII intact, motor and sensory function within normal limits, strength symmetrical , no focal deficits Psych-normal affect, normal mood Results & Data Results & Data Vital Signs (Past 12 Hours) Vital Signs Temp Pulse Resp BP BP Pulse Ox O2 Del Method 10/10/22 13:44 36.9 C 77 20 134/70 94 Room Air 10/10/22 07:29 37.0 C 78 16 124/66 98 Room Air Laboratory Results 10/10/22 06:53 10/10/22 06:53 PG Care Time/CCT Total # of Minutes Spent Total Time Spent with Patient: Total time spent is greater than 50% in coordination of care (as documented) at patient's floor/unit and/or counseling patient: Coding Level of Care Code 70303 SUB INP/OBS CARE 2/35MIN Diagnoses Lumbar disc herniation with radiculopathy M51.16 Back pain M54.9 Type 2 diabetes mellitus E11.9 Asthma J45.909
[2022-10-10] MEDS ORDERED: ONDANSETRON INJ 2 MG/ML 2 ML VIAL ONE (16:23)
[2022-10-10] MEDS ORDERED: SUGAMMADEX SODIUM 200 MG/2 ML VIAL IV ONE (16:24)
[2022-10-10] MEDS ORDERED: FLOSEAL HEMOSTATIC MATRIX 10ML TOP ONE (16:42)
--- NOTE | 2022-10-10 16:54 | Operative Report ---
Post Operative Report Pre & Post Diagnosis Operation Date: 10/10/22 14:45 Pre-Op Diagnosis: Lumbar disc herniation with radiculopathy Post-Op Diagnosis: Lumbar disc herniation with radiculopathy I identified the patient and participated in the time-out.: Yes Procedure Operation Date: 10/10/22 14:45 Actual Procedures #1 lumbar decompression bilaterally facetectomies and foraminotomies L4-5. #2 posterior spinal fusion L4-5 per #3 placed posterior instrumentation L4-5. #4 interbody fusion L4-5. #5 placement Spira 15 x 26 mm x 2 at L4-5. #6 placement locally harvested morselized autograft in the posterior gutters. #7 placement of I factor in the interbody space and infuse collagen sponge, master graft in the posterior lateral gutters. Surgeon Victorino Mojica, DO Furniture Maker Malina Neff Estimated Blood Loss 200 Findings See Below The patient is 6 foot 2 weighing 111 kg with a BMI in excess of 31. The patient's body habitus did contribute to significant technical difficulty required deepest retractors longer instruments in order to perform his procedure. This at least 50% increased operative time Specimens None Indications This is a 52-year-old male who presents with severe spinal stenosis secondary to massive disc herniation and radiculopathy. In light of his severe pain and progressive neuro deficits he is here for urgent decompression fusion. Description of Procedure Patient was met with identified informed consent obtained. Patient was then taken to the operative suite underwent ablation placed in a prone position on the Gianluca table atop the Nisl frame. All bony promises well-padded eyes inspected to ensure no external pressure placed upon the. This point lumbar spine was prepped and draped in a normal sterile fashion. Sharp dissection with the assistance of Bovie cautery to form down to and exposing the lamina and t ransverse processes of L4 and L5. From caudal cephalad fashion complete laminectomy of L4 was performed including bilateral medial facetectomies and foraminotomies. This allowed us to adequately remove all free disc fragments from both sides. Severe neural compression was noted. Pedicle screws were then placed in L4-5 bilaterally with assistance of fluoroscopy and properly sized lam placed. By way of transforaminal approach on the right discectomy was performed endplates guided to subcortically bone and a 15 x 26 mm Spira cage with I factor tapped in position. Then proceeded to the left side by way of transforaminal approach the remainder of the disc was removed endplates curetted to subcortical bleeding bone and a 15 x 26 mm Spira cage with I factor tapped the position. The rods were then compressed locked in final position bilaterally. The transverse processes of L4-5 burred to subcortically bone. Infuse collagen sponge, master graft and locally harvested morselized autograft was placed in the posterior gutters. 15 round EDMUND inserted. Incision was then closed with 1 Vicryl the fascia 2-0 Vicryl subcutaneously and 4 Monocryl for final skin closure. Steri-Strips sterile dressing placed. Patient waken taken to PACU stable condition. Please note spinal cord monitoring was utilized at the procedure no changes noted. Lastly Malina Neff was present at the entire surger y and all the patient positioning complex portion of the surgery and final skin closure. I attest to the content of the Intraoperative Record and any orders documented therein. Any exceptions are noted below.
[2022-10-10] MEDS: fentaNYL citrate PF 100 MCG/2 ML VIAL IV PRN ×3 (17:20→18:14)
--- NOTE | 2022-10-10 18:15 | Fluoroscopy Report ---
FL lumbar spine 2-3V CLINICAL HISTORY: L4-L5 D/F COMPARISON STUDY: Lumbar spine 10/06/2022 FLUOROSCOPY TIME: 15.4 seconds FLUOROSCOPY IMAGES: 2 EXPOSURE DOSE: 14.06 mGy FINDINGS: Posterior interbody lam and screw fusion with discectomy and posterior decompression at L4- L5. Hardware appears intact. No unexpected opaque foreign bodies. IMPRESSION: Fluoroscopic assistance as above. ACT 112: Negative or not required by law. Electronically signed by: John Ward M.D. 10/10/2022 6:14 PM
--- NOTE | 2022-10-10 18:25 | Anesthesiology Progress Note ---
Date of Service October 10, 2022 Anesthesia Post Procedure Vital Signs Vital Signs: Temp Pulse Pulse Pulse Resp BP BP 10/10/22 18:10 70 14 123/80 10/10/22 17:55 69 14 152/70 H 10/10/22 17:45 66 16 164/82 H 10/10/22 17:35 36.6 C 71 14 147/64 H 10/10/22 17:25 87 14 159/73 H 10/10/22 17:15 103 H 13 175/84 H 10/10/22 17:08 36.0 C L 114 H 14 182/91 H 10/10/22 13:44 36.9 C 77 20 134/70 10/10/22 07:29 37.0 C 78 16 124/66 10/09/22 19:57 36.5 C 67 18 141/81 H Pulse Ox O2 Del Method O2 Flow Rate 10/10/22 18:10 95 Room Air 10/10/22 17:55 93 Room Air 10/10/22 17:45 93 Room Air 10/10/22 17:35 94 Room Air 10/10/22 17:25 98 Oxymask 6 10/10/22 17:15 98 Oxymask 6 10/10/22 17:08 96 Oxymask 6 10/10/22 13:44 94 Room Air 10/10/22 07:29 98 Room Air 10/09/22 19:57 95 Room Air Pain Intensity Back: Pain Intensity: 7 Transfer of Care Handoff Completed per policy Notes Mental Status: alert / awake / arousable and participated in evaluation Patient Amnestic to Procedure: Yes Nausea / Vomiting: adequately controlled Pain: adequately controlled Airway Patency, RR, SpO2: stable & adequate BP & HR: stable & adequate Hydration State: stable & adequate Anesthetic Complications: no major complications apparent and Pt Satisfied with anesthetic care
[2022-10-10] MEDS: traMADol HCL 50 MG TABLET PO PRN (23:31)
[2022-10-11] MEDS: SODIUM CHLORIDE 0.9% 1000ML 1,000 ML IV SCH (06:17)
[2022-10-11 07:08] LABS: Basophils # (auto) 0.03 K/uL (0.00-0.20); Basophils % (auto) 0.2 %; Eosinophils # (auto) 0.02 K/uL (0.00-0.50); Eosinophils % (auto) 0.1 %; Hematocrit (blood only) 42.4 % (42.0-52.0); Hemoglobin 14.5 g/dl (14.0-18.0); Immature Granulocytes # (auto) 0.11 K/uL (0.01-0.20); Immature Granulocytes % (auto) 0.7 %; Lymphocytes # (auto) 1.14 K/uL (1.20-3.40); Lymphocytes % (auto) 7.6 %; Mean Corpuscular Hemoglobin 29.9 pg (25.0-34.0); Mean Corpuscular Hgb Conc 34.2 g/dL (32.0-36.0); Mean Corpuscular Volume 87.4 fL (80.0-100.0); Mean Platelet Volume 8.2 fL (9.4-12.4); Monocytes # (auto) 1.27 K/uL (0.11-0.59); Monocytes % (auto) 8.4 %; Neutrophils # (auto) 12.47 K/uL (1.40-6.50); Platelet Count 179 K/uL (130-400); RDW Coefficient of Variation 13.1 % (11.5-14.5); RDW Standard Deviation 41.3 fL (36.4-46.3); Red Blood Count 4.85 M/uL (4.70-6.10); White Blood Count 15.04 K/ul (4.8-10.8)
[2022-10-11 07:22] LABS: BUN Creatinine Ratio 17.1 (10-20); Calcium 8.6 mg/dl (8.6-10.3); Creatinine Clr Calc Pharmacy 154.1 ml/min; Est GFR (African American) 123.3 ml/min; Est GFR (Non-African American) 106.4 ml/min; Potassium 4.4 mmol/L (3.5-5.1)
[2022-10-11] MEDS: traMADol HCL 50 MG TABLET PO PRN ×3 (07:51→20:04)
[2022-10-11] MEDS: GABAPENTIN 100 MG CAP PO SCH ×3 (07:52→21:34)
[2022-10-11] MEDS: NICOTINE 14 MG/24 HR PATCH TD SCH (07:53)
[2022-10-11] MEDS: INSULIN ASPART PER UNIT CHARGE SC SCH ×4 (07:58→21:35)
[2022-10-11] MEDS: INSULIN HUMAN NPH SC SCH ×2 (08:11→21:36)
[2022-10-11] MEDS: ACETAMINOPHEN 500 MG TAB PO SCH ×3 (08:11→21:34)
--- NOTE | 2022-10-11 11:45 | Orthopedic Progress Note ---
Date of Service October 11, 2022 Assessment & Plan (1) Lumbar disc herniation with radiculopathy: Plan: At this time we will continue physical therapy monitor his EDMUND operatively discharge home next few days. Admission and Anticipated Discharge Date Admission Date: October 09, 2022 Subjective Back pain controlled leg pain improved Physical Exam Physical Exam: Patient is up and ambulating. Is constricted testing. He was comfortable. Results & Data Vital Signs (Past 12 Hours) Vital Signs Temp Pulse Resp BP BP Pulse Ox O2 Del Method 10/11/22 07:30 37.2 C 74 16 138/72 96 Room Air 10/11/22 02:58 37 C 75 18 124/74 97 Room Air
--- NOTE | 2022-10-11 15:51 | Hospitalist Progress Note ---
Date of Service October 11, 2022 Assessment & Plan (1) Lumbar disc herniation with radiculopathy: Plan: L4-L5 interspace. Orthopedic spine surgery consultation appreciated. Surgical intervention completed yesterday, postoperative day #1. Supportive care. Pain control measures (2) Back pain: Plan: Due to herniated disc at the L4-L5 level. Pain control measures. Much improved postoperatively (3) Type 2 diabetes mellitus: Plan: He is now on NPH insulin. ADA diet. Sliding scale coverage as needed. Glucose acceptable (4) Asthma: Plan: Stable. Nebulizers as needed Plan Home soon when cleared by surgical service Admission and Anticipated Discharge Date Admission Date: October 09, 2022 Subjective Alert and oriented. He is feeling much better after lumbar surgery yesterday. Postoperative day #1. Orthopedic entry noted. Glucose acceptable at 184. He has requested NicoDerm patches to assist with his smoking cessation. Oral intake is adequate. IV fluids have been discontinued. Hopefully home soon Review of Systems 2 Review of Systems: Constitutional-no fever or chills ENT-no blurred vision, no double vision, no epistaxis, no sore throat Respiratory-no cough, no wheezing, no shortness of breath Cardiac-no palpitations, no chest pain, no syncope GI-no nausea, vomiting, diarrhea, melena, hematochezia -no urinary retention, no urinary incontinence, no dysuria, no hematuria Musculoskeletal-postoperative lumbar discomfort with movement Skin-no bruising, no rashes, no pruritus Neuro-no isolated weakness, no paresthesia, no weakness Psych-no depression, no anxiety Physical Exam Physical Exam: General-alert and oriented x3, no fevers, no chills HEENT-head atraumatic and normocephalic, pupils equal and reactive to light, extraocular muscles intact Neck-no lymphadenopathy or thyromegaly, trachea midline Chest-clear to auscultation percussion. No rales wheezing or rhonchi Cardiac-regular rate and rhythm, normal S1 and S2, no murmurs Abdomen-normal bowel sounds, nontender, no hepatosplenomegaly Extremities-lumbar surgical site clean and dry. Neuro-cranial nerves II through XII intact, motor and sensory function within normal limits, strength symmetrical , no focal deficits Psych-normal affect, normal mood Results & Data Results & Data Vital Signs (Past 12 Hours) Vital Signs Temp Pulse Resp BP Pulse Ox O2 Del Method 08/25/23 07:30 37.2 C 74 16 138/72 96 Room Air Laboratory Results 10/11/22 06:26 10/11/22 06:26 PG Care Time/CCT Total # of Minutes Spent Total Time Spent with Patient: Total time spent is greater than 50% in coordination of care (as documented) at patient's floor/unit and/or counseling patient: Coding Level of Care Code 85661 SUB INP/OBS CARE 2/35MIN Diagnoses Lumbar disc herniation with radiculopathy M51.16 Back pain M54.9 Type 2 diabetes mellitus E11.9 Asthma J45.909
[2022-10-12] MEDS: traMADol HCL 50 MG TABLET PO PRN ×2 (03:35→09:19)
[2022-10-12] MEDS ORDERED: CALCIUM CARBONATE 500 MG CHEWABLE TAB PO PRN (04:32)
[2022-10-12] MEDS: LORazepam 2 MG/1 ML VIAL IV PRN ×2 (05:45→06:02)
[2022-10-12] MEDS: POLYETHYLENE (MIRALAX) 17 GM PACK PO SCH ×4 (05:45→23:00)
[2022-10-12] MEDS: NICOTINE 14 MG/24 HR PATCH TD SCH (07:37)
[2022-10-12 08:14] LABS: Basophils # (auto) 0.06 K/uL (0.00-0.20); Basophils % (auto) 0.5 %; Eosinophils # (auto) 0.27 K/uL (0.00-0.50); Hematocrit (blood only) 38.7 % (42.0-52.0); Hemoglobin 13.4 g/dl (14.0-18.0); Immature Granulocytes # (auto) 0.09 K/uL (0.01-0.20); Immature Granulocytes % (auto) 0.7 %; Lymphocytes # (auto) 1.83 K/uL (1.20-3.40); Lymphocytes % (auto) 13.8 %; Mean Corpuscular Hemoglobin 30.4 pg (25.0-34.0); Mean Corpuscular Hgb Conc 34.6 g/dL (32.0-36.0); Mean Corpuscular Volume 87.8 fL (80.0-100.0); Mean Platelet Volume 8.2 fL (9.4-12.4); Monocytes # (auto) 1.49 K/uL (0.11-0.59); Monocytes % (auto) 11.2 %; Neutrophils # (auto) 9.54 K/uL (1.40-6.50); Neutrophils % (auto) 71.8 %; Platelet Count 150 K/uL (130-400); RDW Standard Deviation 41.3 fL (36.4-46.3); Red Blood Count 4.41 M/uL (4.70-6.10); White Blood Count 13.28 K/ul (4.8-10.8)
[2022-10-12 08:29] LABS: BUN Creatinine Ratio 16.2 (10-20); Calcium 8.8 mg/dl (8.6-10.3); Creatinine Clr Calc Pharmacy 158.3 ml/min; Est GFR (African American) 124.7 ml/min; Est GFR (Non-African American) 107.6 ml/min
[2022-10-12] MEDS: INSULIN ASPART PER UNIT CHARGE SC SCH ×4 (09:11→20:49)
[2022-10-12] MEDS: GABAPENTIN 100 MG CAP PO SCH ×3 (09:13→19:36)
[2022-10-12] MEDS: INSULIN HUMAN NPH SC SCH ×2 (09:13→20:49)
[2022-10-12] MEDS: ACETAMINOPHEN 500 MG TAB PO SCH ×3 (09:19→19:37)
[2022-10-12] MEDS ORDERED: KETOROLAC 30 MG/ML VIAL IV ONE (10:51)
[2022-10-12] MEDS ORDERED: KETOROLAC 30 MG/ML VIAL IV PRN (10:51)
--- NOTE | 2022-10-12 10:52 | Orthopedic Progress Note ---
Date of Service October 12, 2022 Assessment & Plan (1) Lumbar disc herniation with radiculopathy: Plan: This time continue physical therapy and pain management. We will monitor his EDMUND output anticipate discharge on tomorrow. Admission and Anticipated Discharge Date Admission Date: October 09, 2022 Subjective Patient is complaining mostly of back pain. Leg symptoms are markedly improved. He has been able to ambulate on his own. Physical Exam Physical Exam: Patient is currently bed prescription to testing. Results & Data Vital Signs (Past 12 Hours) Vital Signs Temp Pulse Resp BP Pulse Ox O2 Del Method 10/12/22 07:27 37.4 C 88 18 117/60 97 Room Air
[2022-10-12] MEDS ORDERED: INSULIN HUMAN NPH SC ONE (11:23)
--- NOTE | 2022-10-12 14:09 | Hospitalist Progress Note ---
Date of Service October 12, 2022 Assessment & Plan (1) Lumbar disc herniation with radiculopathy: Plan: L4-L5 interspace. Orthopedic spine surgery consultation appreciated. Surgical intervention completed yesterday, postoperative day #2. Supportive care. Pain control measures (2) Back pain: Plan: Due to herniated disc at the L4-L5 level. Pain control measures. Much improved postoperatively (3) Type 2 diabetes mellitus: Plan: He is now on NPH insulin. Dosage uptitrated today, October 12. ADA diet. Sliding scale coverage as needed. Glucose 212 this morning (4) Asthma: Plan: Stable. Nebulizers as needed Plan Hopefully home tomorrow, October 13 Admission and Anticipated Discharge Date Admission Date: October 09, 2022 Subjective Alert and oriented. No acute distress. NPH insulin uptitrated today, October 12, due to mildly elevated glucose. A prescription was given to the patient today for supplies necessary for home monitoring of glucose. Hopefully he will go home tomorrow, October 13 Review of Systems Review of Systems: Constitutional-no fever or chills ENT-no blurred vision, no double vision, no epistaxis, no sore throat Respiratory-no cough, no wheezing, no shortness of breath Cardiac-no palpitations, no chest pain, no syncope GI-no nausea, vomiting, diarrhea, melena, hematochezia -no urinary retention, no urinary incontinence, no dysuria, no hematuria Musculoskeletal-postoperative lumbar discomfort with movement Skin-no bruising, no rashes, no pruritus Neuro-no isolated weakness, no paresthesia, no weakness Psych-no depression, no anxiety Physical Exam Physical Exam: General-alert and oriented x3, no fevers, no chills HEENT-head atraumatic and normocephalic, pupils equal and reactive to light, extraocular muscles intact Neck-no lymphadenopathy or thyromegaly, trachea midline Chest-clear to auscultation percussion. No rales wheezing or rhonchi Cardiac-regular rate and rhythm, normal S1 and S2, no murmurs Abdomen-normal bowel sounds, nontender, no hepatosplenomegaly Extremities-lumbar surgical site clean and dry. Neuro-cranial nerves II through XII intact, motor and sensory function within normal limits, strength symmetrical , no focal deficits Psych-normal affect, normal mood Results & Data Results & Data Vital Signs (Past 12 Hours) Vital Signs Temp Pulse Resp BP BP Pulse Ox O2 Del Method 10/12/22 14:05 36.7 C 83 18 110/72 99 Room Air 10/12/22 07:27 37.4 C 88 18 117/60 97 Room Air Laboratory Results 10/12/22 07:55 10/12/22 07:55 PG Care Time/CCT Total # of Minutes Spent Total Time Spent with Patient: Total time spent is greater than 50% in coordination of care (as documented) at patient's floor/unit and/or counseling patient: Coding Level of Care Code 39915 SUB INP/OBS CARE 3/50MIN Diagnoses Lumbar disc herniation with radiculopathy M51.16 Back pain M54.9 Type 2 diabetes mellitus E11.9 Asthma J45.909
[2022-10-12] MEDS ORDERED: SENNA 8.6 MG TAB PO SCH (21:00)
[2022-10-13] MEDS: traMADol HCL 50 MG TABLET PO PRN (02:45)
[2022-10-13] MEDS: POLYETHYLENE (MIRALAX) 17 GM PACK PO SCH (05:18)
[2022-10-13] MEDS: INSULIN ASPART PER UNIT CHARGE SC SCH (08:20)
[2022-10-13] MEDS: GABAPENTIN 100 MG CAP PO SCH (08:21)
[2022-10-13] MEDS: INSULIN HUMAN NPH SC SCH (08:22)
[2022-10-13] MEDS: ACETAMINOPHEN 500 MG TAB PO SCH (08:27)
[2022-10-13] MEDS: NICOTINE 14 MG/24 HR PATCH TD SCH (08:28)
--- NOTE | 2022-10-13 09:55 | Discharge Summary ---
Date of Service October 13, 2022 Principal Diagnosis Lumbar disc herniation with radiculopathy Discharge Data Allergies Allergy/AdvReac Type Severity Reaction Status Date / Time ibuprofen AdvReac Intermediate Rash Unverified 10/07/22 18:49 mushroom AdvReac Diarrhea Verified 10/10/22 09:56 Consultations 10/07/22 18:03 Consult Orthopedic Spine Surgery Routine ED Decision to Admit Stat 10/07/22 20:47 Consult Orthopedic Surgery Routine Procedures Performed Operation Date: 10/10/22 14:45 Actual Procedures p Decompression and Fusion L4-L5 with Spinal Cord Monitoring(Bilateral) - Victorino Mojica DO Ordered Studies 10/08/22 07:53 MRI Lumbar Spine [MR lumbar spine wo con] Urgent 10/10/22 [place] lumbar spine 2-3V Routine Diabetes Follow up Diabetes Follow-up Needed for HgbA1c >9% Hospital Course (1) Lumbar disc herniation with radiculopathy: Patient was admitted with severe leg pain with motor deficit underwent emergent decompression fusion tolerated this well was taken orthopedic for postop. He progressed appropriately postoperatively. Pain improved. Strength improved. EDMUND drain decreasing appropriate. Pain well controlled. Subsidy discharged home. Discharge orders instructions found in chart for further review. Total Time Total Time Spent Total Time Spent (In Minutes): 20 minutes Discharge Plan Discharge Items Patient Disposition: Home - Self-Care Reason For Visit: BACK PAIN Discharge Diagnosis: Lumbar disc herniation with radiculopathy Activity: As commented below Non-emergency contact: Primary Care Provider Call non-emergency contact if: you have any medication questions Follow-up/Referrals: PCP,NO [Physician] - Diet: Regular Addtl Attending Provider Instructions: ACTIVITY RECOMMENDATIONS: SELF CARE INSTRUCTIONS AFTER THORACIC/LUMBAR FUSIONS 1. You may walk to your tolerance. It is good exercise for your legs and back. Expect some back and intermittent leg aches and pains. 2. You may perform "counter-top" level activities (make a sandwich, barbara with a project, etc.). 3. No bending or lifting of more than 10 pounds or back twisting of any nature (roll like a log when turning in bed). 4. You may ride in a car for 20-30 minutes at a time. No driving until after your first visit with your doctor. 5. Frequent changes of position and restricting sitting to 30 minutes at a time will help limit the amount of back spasms and stiffness you may experience. 6. You may discontinue the use of ambulatory aids (cane, crutches, etc.) once your strength and confidence allow. 7. You may crossing gateman the shower and let water strike your incision when you arrive home at least once daily. Do not take a tub bath, sit in a hot tub or go into a swimming pool until after your first recheck in the office. SPECIAL CARE INSTRUCTIONS: VERY IMPORTANT TO READ AND REVIEW A. Your surgical incision has been closed with a cosmetic suture under the skin that will dissolve in about 6 weeks. In 14 days, you can use a pair of clean scissors and cut the suture that is left outside of the skin at the ends of your incision. 1. The small skin tapes can be removed 7 days after surgery if they have not fallen off by that point. 2. You may keep the wound open to air as much as possible to promote healing after post-op day number 5 unless told otherwise by your doctor. 3. If you think the wound looks like it is becoming infected (redness or worsening drainage) and/or you are experiencing fever, chill or worsening back pain and muscle spasms, contact the office so that we may evaluate you as soon as possible. B. Complications are uncommon, but please contact us if you have any signs or symptoms of: 1. wound infection (fever higher than 102.5 degrees F, redness, separation of wound, drainage, or increasing pain from the incision) 2. blood clots in legs (pain, swelling, redness and warmth in legs) 3. urinary tract infection (fever higher than 102.5 degrees F, burning upon urination or increased frequency of urination) 4. nerve problems (inability to walk on your toes or heels, numbness, loss of bowel or bladder control) 5. any other symptoms that concern you C. Please call the office at if you have any concerns or questions about your operation or recovery. D. No smoking! Smoking drastically decreases the chance of a solid fusion. E. Do not take any anti-inflammatory medications (Indocin, Advil, Motrin, Aspirin, Naprosyn, etc.) as these may inhibit the chance of a solid fusion. Tylenol is okay to take for pain. MANAGING PAIN AFTER SPINAL SURGERY 1. Narcotic medication is intended for short-term use and will be provided for surgical pain. Surgical pain usually lasts for a period of 4-6 weeks. Narcotic medication includes Percocet, Vicodin, Darvocet, Tylenol #3 or Lortab. 2. Longer-term pain is more appropriately treated with non-narcotic medication such as Tylenol ES. 3. Muscle spasm is not appropriately treated with narcotics. Muscle relaxers such as Soma, Flexeril or Skelaxin can be used along with Tylenol ES. 4. Remember that we all live with some "aches and pains". This is not unusual or uncommon after an injury or as we get older. a. Back pain is expected and may include muscle spasms for 4 to 6 weeks after surgery. The pain should gradually improve. If the pain worsens for no apparent reason, please contact the office. b. Intermittent leg pain may also be experienced and should not be concerned about unless it worsens for no apparent reason. If so, please contact the office. 5. We will provide appropriate medication within the normal guidelines of their prescribed use. We will also be very cautious and aware of potential abuse and extended duration of patients' medication needs. a. Pain medications are for your comfort and to assist with sleep and rest so that the tissue can heal. They are not provided in order to return to normal activity and should not be used through the day. To do so or worsening pain at night can result from ongoing tissue damage and development of tolerance to the prescribed medicine. 6. Please allow 2-3 days to process refills. Prescriptions will not be mailed but must be picked up at the office. FOLLOW UP VISIT: Keep your scheduled follow-up appointment. Any questions, please call the office at . Pending Studies at Discharge: No Stand-Alone Forms: My [facility] [employer], Smoking Cessation Medications and DC Order Prescriptions: New tramadol 50 mg tablet 50 mg PO Q6H PRN (Reason: pain, moderate) Qty: 30 0RF ketorolac 10 mg tablet 10 mg PO Q8H PRN (Reason: pain) Qty: 30 0RF Continued albuterol sulfate 90 mcg/actuation HFA aerosol inhaler 2 puff INHALATION Q6H PRN (Reason: wheezing) Medical Marijuana See Rx Instructions .ROUTE .COMPLEX Rx Instructions: Todays dose was 4 but usually only does 1 a week Discontinued methylprednisolone 4 mg tablets,dose pack See Rx Instructions .ROUTE .COMPLEX Rx Instructions: 6 on day 1, then decrease by 1 tab each day for total of 6 days Discharge Orders: Discharge Order (Routine); Ordered 10/13/22 Ordered By: Victorino Adan/Other Patient Handouts: High Blood Sugar (Hyperglycemia), Hypoglycemia (Low Blood Sugar), Managing Type 2 Diabetes, Diabetes: Meal Planning Admission Data Admit Date/Time: 10/09/22 09:35 Attending Provider: Prashant Wong Admit Provider: Minh Sewell Primary Care Provider: Emily Hyman Other Providers: Victorino Mojica ; Minh Sewell
--- NOTE | 2022-10-13 12:28 | Hospitalist Progress Note ---
Date of Service October 13, 2022 Assessment & Plan (1) Lumbar disc herniation with radiculopathy: Plan: L4-L5 interspace. Orthopedic spine surgery consultation appreciated. Surgical intervention completed yesterday, postoperative day #3. Supportive care. Pain control measures (2) Back pain: Plan: Due to herniated disc at the L4-L5 level. Pain control measures. Much improved postoperatively (3) Type 2 diabetes mellitus: Plan: He is now on NPH insulin. Dosage uptitrated to 20 units twice daily on October 12. ADA diet. Sliding scale coverage as needed. (4) Asthma: Plan: Stable. Nebulizers as needed Plan Home todayOctober 13 Admission and Anticipated Discharge Date Admission Date: October 09, 2022 Subjective Alert and oriented. No new problems. Postoperative day #3 after back surgery. Glucose 155 this morning. He will be discharged home today, October 13 Review of Systems Review of Systems: Constitutional-no fever or chills ENT-no blurred vision, no double vision, no epistaxis, no sore throat Respiratory-no cough, no wheezing, no shortness of breath Cardiac-no palpitations, no chest pain, no syncope GI-no nausea, vomiting, diarrhea, melena, hematochezia -no urinary retention, no urinary incontinence, no dysuria, no hematuria Musculoskeletal-postoperative lumbar discomfort with movement Skin-no bruising, no rashes, no pruritus Neuro-no isolated weakness, no paresthesia, no weakness Psych-no depression, no anxiety Physical Exam Physical Exam: General-alert and oriented x3, no fevers, no chills HEENT-head atraumatic and normocephalic, pupils equal and reactive to light, extraocular muscles intact Neck-no lymphadenopathy or thyromegaly, trachea midline Chest-clear to auscultation percussion. No rales wheezing or rhonchi Cardiac-regular rate and rhythm, normal S1 and S2, no murmurs Abdomen-normal bowel sounds, nontender, no hepatosplenomegaly Extremities-lumbar surgical site clean and dry. Neuro-cranial nerves II through XII intact, motor and sensory function within normal limits, strength symmetrical , no focal deficits Psych-normal affect, normal mood Results & Data Results & Data Vital Signs (Past 12 Hours) Vital Signs Temp Pulse Resp BP BP Pulse Ox O2 Del Method 10/13/22 11:23 36.4 C L 77 16 145/80 H 125/66 96 10/13/22 07:36 36.4 C L 77 16 145/80 H 96 Room Air PG Care Time/CCT Total # of Minutes Spent Total Time Spent with Patient: Total time spent is greater than 50% in coordination of care (as documented) at patient's floor/unit and/or counseling patient: Coding Level of Care Code 55894 SUB INP/OBS CARE 2/35MIN Diagnoses Lumbar disc herniation with radiculopathy M51.16 Back pain M54.9 Type 2 diabetes mellitus E11.9 Asthma J45.909
== END 2022-10-13 12:12 | disposition home or self-care (01) | DRG 455 ==
LOC: ED 13:20 → 3E 13:20 → SUATTDRO 18:06 → 3E 20:15